=== PATIENT | female | born 1990 | race Caucasian/White ===

== ENCOUNTER 2017-11-18 17:29 | Inpatient (IN) | payer OTHER ==
[2017-11-18] VITALS (10 sets, daily range): BP systolic 113–132; BP diastolic 56–71
[~2017-11-18] VITALS: Ht 177.8 cm; Wt 90.2 kg
[~2017-11-18 17:29] MED LIST: ESCITALOPRAM OX10 MG PO; Motrin PO; NEXPLANON68 MG IL; Percocet 5/325,Endoc PO
[2017-11-18] MEDS ORDERED: PRENATAL TABLE1 EACH PO (18:10)
[2017-11-18 18:41] LABS: BASOPHIL (%) 0.4 % (0-1); EOSINOPHIL (%) 0.2 % (0-5); HEMATOCRIT 37.2 % (36.0-46.0); HEMOGLOBIN 12.4 G/DL (11.9-15.5); IMMATURE GRANULOCYTE (%) 1.5 % (0.0-0.7); LYMPHOCYTE (%) 16.1 % (15-42); LYMPHOCYTE COUNT 1.8 K/uL (1.0-2.8); MCH 27.8 PG (29.0-34.0); MCHC 33.3 G/DL (30.0-36.0); MCV 83.4 FL (83-99); MONOCYTE (%) 7.7 % (3-12); MONOCYTE COUNT 0.9 K/uL (0-0.8); NEUTROPHIL (%) 74.1 % (45-76); NEUTROPHIL COUNT 8.2 K/uL (1.8-6.4); PLATELET COUNT 210 K/uL (156-360); RBC DIS.WIDTH-SD 42.5 % (39-53); RED BLOOD COUNT 4.46 M/uL (3.80-5.20)
[2017-11-18 19:00] LABS: AMPHETAMINE NEGATIVE (500 ng/mL); BARBITURATES NEGATIVE (200 ng/mL); BENZODIAZEPINES NEGATIVE (150 ng/mL); BUPRENORPHINE PRESUMPTIVE POSITIVE (10 ng/mL); COCAINE NEGATIVE (150 ng/mL); METHADONE NEGATIVE (200 ng/mL); METHAMPHETAMINE NEGATIVE (500 ng/mL); OPIATES (MORPHINE) NEGATIVE (100 ng/mL); OXYCODONE NEGATIVE (100 ng/mL); PHENCYCLIDINE NEGATIVE (25 ng/mL); PROPOXYPHENE NEGATIVE (300 ng/mL); THC CANNABINOIDS PRESUMPTIVE POSITIVE (50 ng/mL); TRICYCLIC ANTIDEPRESSANTS NEGATIVE (300 ng/mL)
[2017-11-19] VITALS (13 sets, daily range): BP systolic 90–135; BP diastolic 53–80
[2017-11-19] MEDS ORDERED: IBUPROFEN800 MG PO (06:31)
[2017-11-20] VITALS: BP 125/66
[2017-11-20 07:36] VITALS: BP 112/72
[2017-11-20 16:05] VITALS: BP 113/66
[2017-11-21 07:20] VITALS: BP 109/69
[2017-11-21 15:35] VITALS: BP 115/76
== END 2017-11-21 18:15 | disposition home or self-care (01) | DRG 775 ==
LOC: LDRP-OP 17:29 → 2WEST 17:30
PROVIDERS: Advanced Practice Midwife
DX: O48.0 Post-term pregnancy (principal); Z3A.41 41 weeks gestation of pregnancy; Z37.0 Single live birth; O99.323 Drug use complicating pregnancy, third trimester; F12.90 Cannabis use, unspecified, uncomplicated; F11.90 Opioid use, unspecified, uncomplicated; Z87.891 Personal history of nicotine dependence
CPT/HCPCS: 84999; 85025; C1755; G0378; J3010; J7120